=== PATIENT | male | born 1950 | race Caucasian/White ===

== ENCOUNTER 2017-01-25 17:39 | Emergency (ER) | payer MEDICARE ==
[2017-01-25 18:43] VITALS: BP 153/84
--- NOTE | 2017-01-25 19:02 | UC ---
General HPI - HPI Summary HPI Summary: complaint of burnt left 4th finger not having pain at this time dropped burning hot cheese on his finger took ibuprofen at 1700 for pain last tetanus 2014 - History of Current Complaint Chief Complaint: UCUpperExtremity Stated Complaint: BURNT FINGER Time Seen by Provider: 01/25/17 18:53 Hx Obtained From: Patient - Allergy/Home Medications Allergies/Adverse Reactions: Allergies Allergy/AdvReac Type Severity Reaction Status Date / Time Penicillins Allergy Rash Verified 01/25/17 18:43 Home Medications: Home Medications NK [No Home Medications Reported] 01/25/17 [History Confirmed 01/25/17] PMH/Surg Hx/FS Hx/Imm Hx Previously Healthy: Yes Endocrine History Of: Denies: Diabetes, Thyroid Disease Cardiovascular History Of: Denies: Cardiac Disorders, Hypertension Respiratory History Of: Denies: COPD, Asthma GI/ History Of: Denies: Ulcer - Surgical History Surgical History: Yes Surgery Procedure, Year, and Place: knee surgery 2011 - Family History Known Family History: Positive: Cardiac Disease, Hypertension, Diabetes - Social History Occupation: Employed Full-time Lives: With Family Alcohol Use: None Substance Use Type: None Smoking Status (MU): Never Smoked Tobacco Review of Systems Constitutional: Negative Skin: Other - burn Eyes: Negative ENT: Negative Respiratory: Negative Cardiovascular: Negative Gastrointestinal: Negative Genitourinary: Negative Motor: Negative Neurovascular: Negative Musculoskeletal: Negative Neurological: Negative Psychological: Negative All Other Systems Reviewed And Are Negative: Yes Physical Exam Triage Information Reviewed: Yes Appearance: No Pain Distress, Well-Nourished Vital Signs: Initial Vital Signs Temp 99.1 F 01/25/17 18:39 Pulse 63 01/25/17 18:39 Resp 20 01/25/17 18:39 BP 153/84 01/25/17 18:39 Pulse Ox 96 01/25/17 18:39 Vital Signs Reviewed: Yes Eyes: Positive: Conjunctiva Clear ENT: Positive: Pharynx normal, TMs normal Respiratory: Positive: Lungs clear, Normal breath sounds, No respiratory distress Cardiovascular: Positive: RRR, No Murmur, Pulses Normal Abdomen Description: Positive: Nontender, Soft Bowel Sounds: Positive: Present Musculoskeletal: Positive: No Edema Psychological Exam: Normal Skin Exam: Other - left 4th finger- 3x2cm area 2nd degree burn Course/Dx - Differential Dx - Multi-Symptom Differential Diagnoses: Other - burn, infection Provider Diagnoses: partial thickness burn 4th left finger Discharge - Discharge Plan Condition: Stable Disposition: HOME Patient Education Materials: Second Degree Burn (ED) Referrals: [facility] [Outside] Additional Instructions: Your blood pressure is elevated. Please contact your primary care provider within 1 day -4 weeks for further evaluation. keep your finger clean and dry change bandage daily return for any signs of infection increase in redness, swelling pain or fever Increase fluids and rest Take acetaminophen or ibuprofen for pain Please review your discharge instructions. If your symptoms do not improve please call your primary care provider or return to urgent care.
== END 2017-01-25 19:10 | disposition home or self-care (01) ==
LOC: UCEAST 17:39
DX: T23.022A Burn of unspecified degree of single left finger (nail) except thumb, initial encounter (principal); X10.1XXA Contact with hot food, initial encounter; Y93.9 Activity, unspecified; Y92.9 Unspecified place or not applicable; Z88.0 Allergy status to penicillin
CPT/HCPCS: 99201; G0463